=== PATIENT | male | born 1970 | race Caucasian/White ===

== ENCOUNTER 2019-12-21 08:18 | Inpatient (IN) | payer MEDICAID ==
[~2019-12-21] VITALS: Ht 185.4 cm; Wt 90.9 kg
[~2019-12-21 08:18] MED LIST: CYCL-1 PO; CYCL5TAB PO; CYCL5TAB11 PO; IBUP-1985 PO; MELO-83 PO; METH-360 PO; TRAM50TA2 PO
[2019-12-21] MEDS ORDERED: normal saline 1000ML IV soln IVB ONE (08:35)
[2019-12-21] MEDS ORDERED: thiamine 100mg tablet PO ONE (08:35)
[2019-12-21] MEDS ORDERED: LORazepam 2 mg/ml vial IV ONE ×2 (08:35→09:55)
[2019-12-21 09:08] LABS: BASOPHILS % (AUTO) 0.8 % (0-1); EOSINOPHILS % (AUTO) 0.2 % (0-6); HEMATOCRIT 40.5 % (42.0-52.0); HEMOGLOBIN 13.7 g/dl (14.0-17.9); LYMPHOCYTES # (AUTO) 0.3 X10'3 (1.1-4.8); LYMPHOCYTES % (AUTO) 12.5 % (21-51); MEAN CORPUSCULAR HGB CONC 33.8 g/dL (33.0-36.5); MEAN CORPUSCULAR VOLUME 103.5 FL (78-98); MEAN PLATELET VOLUME 7.2 FL (7.4-10.4); MONOCYTES # (AUTO) 0.3 X10'3 (0-0.9); MONOCYTES % (AUTO) 14.6 % (2-12); NEUTROPHILS # (AUTO) 1.5 X10'3 (1.8-7.7); NEUTROPHILS % (AUTO) 71.9 % (42-75); PLATELET COUNT 63 X10'3 (140-440); RED BLOOD COUNT 3.91 X10'6 (4.70-6.10); RED CELL DISTRIBUTION WIDTH 14.4 % (11.5-14.5); WHITE BLOOD COUNT 2.1 X10'3 (4.5-11.0)
[2019-12-21 09:21] LABS: ALANINE AMINOTRANSFERASE 48 U/L (12-78); ALBUMIN 3.3 G/DL (3.4-5.0); ALBUMIN/GLOBULIN RATIO 0.9 (1.1-1.5); ALKALINE PHOSPHATASE 73 IU/L (46-116); ANION GAP 17 (8-16); ASPARTATE AMINO TRANSFERASE 91 U/L (10-37); BILIRUBIN,TOTAL 1.8 MG/DL (0.1-1.0); BLOOD UREA NITROGEN 14 MG/DL (7-18); BUN/CREATININE RATIO 10.8 (5.4-32.0); CALCIUM 7.5 MG/DL (8.5-10.1); CHLORIDE 102 MMOL/L (99-107); GLUCOSE 160 MG/DL (70-104); PARTIAL THROMBOPLASTIN TIME 25 SECONDS (22-32); POTASSIUM 3.6 MMOL/L (3.5-5.1); SODIUM 141 MMOL/L (135-145); TOTAL CARBON DIOXIDE 21.8 MMOL/L (24-32); TOTAL PROTEIN 6.9 G/DL (6.4-8.2); eGFR 59 ML/MIN
[2019-12-21 09:25] LABS: MAGNESIUM 0.9 MG/DL (1.5-2.4)
[2019-12-21] MEDS ORDERED: magnesium 2GM in 50ml NS 50 ML IV ONE (09:30)
[2019-12-21 09:41] LABS: LYMPHOCYTES % (MANUAL) 10 % (21-51); NEUTROPHILS % (MANUAL) 70 % (42-75); TOTAL CELLS COUNTED 100
[2019-12-21 09:42] LABS: PLATELET ESTIMATE DECREASED
[2019-12-21] MEDS ORDERED: magnesium 2GM in 50ml NS 50 ML IV PRN (10:10)
[2019-12-21] MEDS ORDERED: magnesium 4gm in 100ml NS 100 ML IV PRN (10:10)
[2019-12-21] MEDS ORDERED: LORazepam 2 mg/ml vial IV PRN (10:10)
[2019-12-21] MEDS ORDERED: potassium CL 10mEq/100ml bag 100 ML IV PRN ×2 (10:10)
[2019-12-21] MEDS ORDERED: HYDROcodone/acetaminophen 5mg/325mg tablet PO PRN (10:10)
[2019-12-21] MEDS ORDERED: ondansetron/PF 4mg/2ml inj IV PRN (10:10)
[2019-12-21] MEDS ORDERED: thiamine inj. 100 MG in normal saline 100ml IV soln 100 ML IV ONE (10:10)
[2019-12-21] MEDS ORDERED: folic acid inj. 2 MG, thiamine inj. 100 MG, MVI, adult No.4 with vit. K 10 ML in dextro... IV SCH ×4 (10:10)
[2019-12-21] MEDS ORDERED: acetaminophen 325mg tablet PO PRN (10:10)
[2019-12-21] MEDS ORDERED: magnesium hydroxide 30ml (MOM) UD suspension PO PRN (10:10)
[2019-12-21] MEDS ORDERED: cloNIDine 0.1 mg tablet PO PRN (10:10)
[2019-12-21] MEDS ORDERED: mag hydrox/Alum hydrox/simeth 30ml oral suspension PO PRN ×2 (10:10)
[2019-12-21] MEDS ORDERED: dicyclomine 10 MG capsule PO PRN (10:10)
[2019-12-21] MEDS ORDERED: cyclobenzaprine 10mg tablet PO PRN (10:10)
[2019-12-21] MEDS ORDERED: loperamide 2mg capsule PO PRN (10:10)
[2019-12-21] MEDS: folic acid 1mg tablet PO SCH (11:10)
[2019-12-21] MEDS: atenolol 50mg tablet PO SCH (11:10)
[2019-12-21] MEDS: thiamine 100mg tablet PO SCH (11:10)
[2019-12-21] MEDS: multivitamins, therapeutics tablet PO SCH (11:10)
[2019-12-21] MEDS ORDERED: NO HOME MEDS (11:40)
--- NOTE | 2019-12-21 13:45 | NUR ---
Report received from ED RNMikie
[2019-12-21 14:50] VITALS: BP 136/93
[2019-12-21] MEDS: HYDROcodone/acetaminophen 10/325mg tab PO PRN ×3 (15:23→23:51)
[2019-12-21 17:00] VITALS: BP 136/91
--- NOTE | 2019-12-21 18:15 | NUR ---
Problems reprioritized. Patient report given, questions answered & plan of care reviewed with RODRIGUEZ Hubbard.
[2019-12-21] MEDS: LORazepam 1 MG tablet PO PRN ×3 (19:29→23:52)
[2019-12-21] MEDS: K and/or MAG REPLACEMENT MC SCH (20:00)
[2019-12-21 22:00] VITALS: BP 123/76
[2019-12-22] MEDS: LORazepam 2 mg/ml vial IV PRN ×9 (01:36→23:05)
--- NOTE | 2019-12-22 01:36 | NUR ---
pt still having shakiness in hands after PO ativan, IV ativan given. will continue to monitor
[2019-12-22 01:41] VITALS: BP 130/107
[2019-12-22] MEDS: LORazepam 1 MG tablet PO PRN ×2 (04:08→07:12)
[2019-12-22] MEDS: HYDROcodone/acetaminophen 10/325mg tab PO PRN ×2 (04:08→07:45)
[2019-12-22 06:58] VITALS: BP 139/92
[2019-12-22 07:03] LABS: BASOPHILS % (AUTO) 0.8 % (0-1); EOSINOPHILS % (AUTO) 1.4 % (0-6); HEMATOCRIT 42.2 % (42.0-52.0); HEMOGLOBIN 14.6 g/dl (14.0-17.9); LYMPHOCYTES # (AUTO) 0.8 X10'3 (1.1-4.8); LYMPHOCYTES % (AUTO) 23.6 % (21-51); MEAN CORPUSCULAR HEMOGLOBIN 35.6 PG (27.0-31.0); MEAN CORPUSCULAR HGB CONC 34.7 g/dL (33.0-36.5); MEAN CORPUSCULAR VOLUME 102.6 FL (78-98); MEAN PLATELET VOLUME 7.9 FL (7.4-10.4); MONOCYTES # (AUTO) 0.4 X10'3 (0-0.9); MONOCYTES % (AUTO) 11.5 % (2-12); NEUTROPHILS # (AUTO) 2.1 X10'3 (1.8-7.7); NEUTROPHILS % (AUTO) 62.7 % (42-75); PLATELET COUNT 81 X10'3 (140-440); RED BLOOD COUNT 4.12 X10'6 (4.70-6.10); RED CELL DISTRIBUTION WIDTH 14.4 % (11.5-14.5); WHITE BLOOD COUNT 3.3 X10'3 (4.5-11.0)
[2019-12-22] MEDS: atenolol 50mg tablet PO SCH (07:11)
[2019-12-22] MEDS: folic acid 1mg tablet PO SCH (07:11)
[2019-12-22] MEDS: multivitamins, therapeutics tablet PO SCH (07:11)
[2019-12-22] MEDS: thiamine 100mg tablet PO SCH (07:12)
[2019-12-22] MEDS: enoxaparin 40mg/0.4ml syringe SUBCUT SCH (07:12)
[2019-12-22 07:18] LABS: ALANINE AMINOTRANSFERASE 50 U/L (12-78); ALBUMIN 3.8 G/DL (3.4-5.0); ALKALINE PHOSPHATASE 78 IU/L (46-116); AMYLASE 270 U/L (25-115); ANION GAP 15 (8-16); ASPARTATE AMINO TRANSFERASE 82 U/L (10-37); BILIRUBIN,TOTAL 1.9 MG/DL (0.1-1.0); BLOOD UREA NITROGEN 13 MG/DL (7-18); BUN/CREATININE RATIO 10.7 (5.4-32.0); CALCIUM 8.1 MG/DL (8.5-10.1); CHLORIDE 99 MMOL/L (99-107); CREATININE 1.22 MG/DL (0.60-1.10); GLUCOSE 89 MG/DL (70-104); MAGNESIUM 1.3 MG/DL (1.5-2.4); SODIUM 137 MMOL/L (135-145); TOTAL PROTEIN 7.6 G/DL (6.4-8.2); eGFR 64 ML/MIN
[2019-12-22 07:32] LABS: LIPASE 3758 U/L (73-393)
[2019-12-22 07:33] LABS: POTASSIUM 2.9 MMOL/L (3.5-5.1)
[2019-12-22 07:34] LABS: PHOSPHORUS 1.1 MG/DL (2.3-4.5)
[2019-12-22] MEDS: potassium Cl 20 mEq SR tablet PO PRN ×3 (07:45→20:34)
[2019-12-22] MEDS: K and/or MAG REPLACEMENT MC SCH ×2 (08:00→20:00)
[2019-12-22 10:00] VITALS: BP 131/97
[2019-12-22] MEDS ORDERED: chlordiazePOXIDE 25mg capsule PO PRN (11:00)
[2019-12-22] MEDS: chlordiazePOXIDE 25mg capsule PO PRN ×2 (11:25→16:43)
[2019-12-22] MEDS ORDERED: chlordiazePOXIDE 25mg capsule PO ONE (12:25)
[2019-12-22] MEDS ORDERED: sodium phosphate inj. 30 MMOL in dextrose 5%-water 250 ML IV ONE (15:15)
[2019-12-22 18:00] VITALS: BP 124/94
[2019-12-22 22:00] VITALS: BP 136/88
[2019-12-23] MEDS: LORazepam 2 mg/ml vial IV PRN ×7 (00:21→14:30)
[2019-12-23 02:00] VITALS: BP 130/84
--- NOTE | 2019-12-23 06:31 | NUR ---
REPORT GIVEN TO KRISTAN FRIAS
[2019-12-23 06:59] LABS: BASOPHILS % (AUTO) 0.7 % (0-1); EOSINOPHILS # (AUTO) 0.1 X10'3 (0-0.9); HEMATOCRIT 42.9 % (42.0-52.0); HEMOGLOBIN 14.6 g/dl (14.0-17.9); LYMPHOCYTES % (AUTO) 27.7 % (21-51); MEAN CORPUSCULAR HEMOGLOBIN 35.6 PG (27.0-31.0); MEAN CORPUSCULAR HGB CONC 34.1 g/dL (33.0-36.5); MEAN CORPUSCULAR VOLUME 104.4 FL (78-98); MEAN PLATELET VOLUME 7.9 FL (7.4-10.4); MONOCYTES # (AUTO) 0.4 X10'3 (0-0.9); MONOCYTES % (AUTO) 10.5 % (2-12); NEUTROPHILS # (AUTO) 2.1 X10'3 (1.8-7.7); NEUTROPHILS % (AUTO) 58.1 % (42-75); PLATELET COUNT 90 X10'3 (140-440); RED BLOOD COUNT 4.11 X10'6 (4.70-6.10); RED CELL DISTRIBUTION WIDTH 14.3 % (11.5-14.5); WHITE BLOOD COUNT 3.5 X10'3 (4.5-11.0)
--- NOTE | 2019-12-23 07:12 | NUR ---
Patient in room [facility] 4009. I have received report from RODRIGUEZ Shah and had the opportunity to ask questions and assume patient care.
[2019-12-23 07:27] LABS: ALANINE AMINOTRANSFERASE 52 U/L (12-78); ALBUMIN 3.7 G/DL (3.4-5.0); ALBUMIN/GLOBULIN RATIO 0.9 (1.1-1.5); ALKALINE PHOSPHATASE 87 IU/L (46-116); AMYLASE 209 U/L (25-115); ANION GAP 15 (8-16); ASPARTATE AMINO TRANSFERASE 86 U/L (10-37); BILIRUBIN,TOTAL 1.6 MG/DL (0.1-1.0); BLOOD UREA NITROGEN 16 MG/DL (7-18); BUN/CREATININE RATIO 13.6 (5.4-32.0); CALCIUM 8.2 MG/DL (8.5-10.1); CHLORIDE 102 MMOL/L (99-107); CREATININE 1.18 MG/DL (0.60-1.10); GLUCOSE 74 MG/DL (70-104); MAGNESIUM 1.4 MG/DL (1.5-2.4); PHOSPHORUS 3.4 MG/DL (2.3-4.5); POTASSIUM 3.2 MMOL/L (3.5-5.1); SODIUM 141 MMOL/L (135-145); TOTAL CARBON DIOXIDE 23.9 MMOL/L (24-32); TOTAL PROTEIN 7.6 G/DL (6.4-8.2); eGFR 66 ML/MIN
[2019-12-23 07:45] LABS: LIPASE 2305 U/L (73-393)
[2019-12-23] MEDS: enoxaparin 40mg/0.4ml syringe SUBCUT SCH (08:00)
[2019-12-23] MEDS: K and/or MAG REPLACEMENT MC SCH ×2 (08:00→20:00)
[2019-12-23] MEDS: LORazepam 1 MG tablet PO PRN (09:27)
[2019-12-23] MEDS: folic acid 1mg tablet PO SCH (09:29)
[2019-12-23] MEDS: multivitamins, therapeutics tablet PO SCH (09:30)
[2019-12-23] MEDS: HYDROcodone/acetaminophen 10/325mg tab PO PRN (09:30)
[2019-12-23] MEDS: atenolol 50mg tablet PO SCH (09:32)
[2019-12-23] MEDS: thiamine 100mg tablet PO SCH (09:34)
[2019-12-23 11:00] VITALS: BP 113/84
[2019-12-23] MEDS ORDERED: oxyCODONE/APAP 5-325mg tablet PO PRN (12:50)
[2019-12-23] MEDS: magnesium Cl slow-release 64mg tablet PO PRN (18:15)
[2019-12-23] MEDS: potassium Cl 20 mEq SR tablet PO PRN (18:15)
--- NOTE | 2019-12-23 18:45 | NUR ---
Patient in room [facility]THO 4009. I have received report from Bhumi FRIAS and had the opportunity to ask questions and assume patient care.
[2019-12-23 18:55] VITALS: BP 108/78
--- NOTE | 2019-12-23 18:59 | NUR ---
Problems reprioritized. Patient report given, questions answered & plan of care reviewed with RODRIGUEZ Hernández. Pt has been less anxious. Ativan given x3 this shift. Resting in bed at this time with sitter at bedside.
[2019-12-23 22:00] VITALS: BP 113/83
[2019-12-24] MEDS: potassium Cl 20 mEq SR tablet PO PRN (00:43)
[2019-12-24] MEDS: magnesium Cl slow-release 64mg tablet PO PRN (00:43)
[2019-12-24] MEDS: LORazepam 2 mg/ml vial IV PRN (04:42)
--- NOTE | 2019-12-24 06:34 | NUR ---
Problems reprioritized. Patient report given, questions answered & plan of care reviewed with Petra FRIAS.
[2019-12-24 07:08] VITALS: BP 106/75
[2019-12-24 07:13] VITALS: BP_SYST 106
[2019-12-24] MEDS: thiamine 100mg tablet PO SCH (07:13)
[2019-12-24] MEDS: atenolol 50mg tablet PO SCH (07:13)
[2019-12-24] MEDS: multivitamins, therapeutics tablet PO SCH (07:13)
[2019-12-24] MEDS: folic acid 1mg tablet PO SCH (07:13)
[2019-12-24] MEDS: LORazepam 1 MG tablet PO PRN ×3 (07:14→14:26)
[2019-12-24] MEDS: HYDROcodone/acetaminophen 10/325mg tab PO PRN ×3 (07:19→15:28)
[2019-12-24] MEDS: K and/or MAG REPLACEMENT MC SCH (08:00)
[2019-12-24] MEDS: enoxaparin 40mg/0.4ml syringe SUBCUT SCH (08:00)
[2019-12-24] MEDS: chlordiazePOXIDE 25mg capsule PO PRN ×2 (08:35→14:26)
[2019-12-24 08:53] LABS: BASOPHILS % (AUTO) 0.6 % (0-1); EOSINOPHILS # (AUTO) 0.1 X10'3 (0-0.9); EOSINOPHILS % (AUTO) 3.3 % (0-6); HEMATOCRIT 40.1 % (42.0-52.0); HEMOGLOBIN 13.5 g/dl (14.0-17.9); LYMPHOCYTES # (AUTO) 0.7 X10'3 (1.1-4.8); LYMPHOCYTES % (AUTO) 21.4 % (21-51); MEAN CORPUSCULAR HEMOGLOBIN 35.5 PG (27.0-31.0); MEAN CORPUSCULAR HGB CONC 33.6 g/dL (33.0-36.5); MEAN CORPUSCULAR VOLUME 105.5 FL (78-98); MEAN PLATELET VOLUME 7.7 FL (7.4-10.4); MONOCYTES # (AUTO) 0.5 X10'3 (0-0.9); MONOCYTES % (AUTO) 16.3 % (2-12); NEUTROPHILS # (AUTO) 1.9 X10'3 (1.8-7.7); NEUTROPHILS % (AUTO) 58.4 % (42-75); PLATELET COUNT 109 X10'3 (140-440); RED BLOOD COUNT 3.79 X10'6 (4.70-6.10); RED CELL DISTRIBUTION WIDTH 14.1 % (11.5-14.5); WHITE BLOOD COUNT 3.3 X10'3 (4.5-11.0)
[2019-12-24 09:13] LABS: ALANINE AMINOTRANSFERASE 49 U/L (12-78); ALBUMIN 3.1 G/DL (3.4-5.0); ALBUMIN/GLOBULIN RATIO 0.8 (1.1-1.5); ALKALINE PHOSPHATASE 84 IU/L (46-116); AMYLASE 143 U/L (25-115); ANION GAP 14 (8-16); ASPARTATE AMINO TRANSFERASE 76 U/L (10-37); BILIRUBIN,TOTAL 1.4 MG/DL (0.1-1.0); BLOOD UREA NITROGEN 20 MG/DL (7-18); BUN/CREATININE RATIO 16.5 (5.4-32.0); CALCIUM 7.8 MG/DL (8.5-10.1); CHLORIDE 106 MMOL/L (99-107); CREATININE 1.21 MG/DL (0.60-1.10); GLUCOSE 72 MG/DL (70-104); LIPASE 1107 U/L (73-393); MAGNESIUM 1.3 MG/DL (1.5-2.4); PHOSPHORUS 2.4 MG/DL (2.3-4.5); POTASSIUM 3.5 MMOL/L (3.5-5.1); SODIUM 142 MMOL/L (135-145); TOTAL CARBON DIOXIDE 22.4 MMOL/L (24-32); TOTAL PROTEIN 6.9 G/DL (6.4-8.2); eGFR 64 ML/MIN
[2019-12-24] MEDS ORDERED: magnesium 4gm in 100ml NS 100 ML IV PRN (11:05)
[2019-12-24] MEDS ORDERED: potassium Cl 20 mEq SR tablet PO PRN ×2 (11:05)
[2019-12-24] MEDS ORDERED: magnesium Cl slow-release 64mg tablet PO PRN (11:05)
[2019-12-24] MEDS ORDERED: potassium CL 10mEq/100ml bag 100 ML IV PRN (11:05)
[2019-12-24] MEDS ORDERED: thiamine tablet PO (13:02)
[2019-12-24] MEDS ORDERED: PANT-47 PO (13:02)
[2019-12-24] MEDS ORDERED: MULT-1179 PO (13:02)
[2019-12-24] MEDS ORDERED: ATEN50TA41 PO (13:02)
[2019-12-24] MEDS ORDERED: folic acid tablet PO (13:02)
--- NOTE | 2019-12-24 16:00 | NUR ---
PATIENT DISCHARGED SAFELY WITH FRIEND ALL BELONGINGS IN POSSESSION. PRESCRIPTIONS CALLED AND SENT TO [facility]. PATIENT VERBALIZES UNDERSTANDING OF DC INSTRUCTIONS.
[2019-12-25] MEDS ORDERED: LORazepam 1 MG tablet PO PRN (10:10)
== END 2019-12-24 16:19 | disposition home or self-care (01) | DRG 53 ==
LOC: ER 08:19 → ED HOLD 10:07 → ORTHO 4S 14:45
PROVIDERS: ADMIT Internal Medicine; ATTEND Internal Medicine
DX: G40.89 Other seizures (principal); D61.818 Other pancytopenia; E83.42 Hypomagnesemia; E83.39 Other disorders of phosphorus metabolism; D53.9 Nutritional anemia, unspecified; Z82.49 Family history of ischemic heart disease and other diseases of the circulatory system; Z83.3 Family history of diabetes mellitus; Z87.891 Personal history of nicotine dependence; Z79.899 Other long term (current) drug therapy; R00.0 Tachycardia, unspecified; E87.6 Hypokalemia; M19.90 Unspecified osteoarthritis, unspecified site; G89.29 Other chronic pain; M54.9 Dorsalgia, unspecified; F41.9 Anxiety disorder, unspecified
CPT/HCPCS: 36415; 80053; 82150; 82948; 83690; 83735; 84100; 85025; 85610; 85730; 87081; 93005; 96361; 96365; 96375; 96376; 99285; G0378; J2060; J3475; J7030; J7060